=== PATIENT | female | born 1955 | race Hispanic/Latino ===

== ENCOUNTER → 2022-06-14 | Outpatient (CLI) | payer MEDICARE | LOC: MRI 08:56 | PROVIDERS: ATTEND Specialist | DX: M79.605 Pain in left leg (principal) ==

== ENCOUNTER 2022-07-10 15:34 | Outpatient (RCR) | payer MEDICARE | END 2022-07-16 | LOC: PT 15:34 | PROVIDERS: ATTEND Podiatrist Foot & Ankle Surgery | DX: R26.2 Difficulty in walking, not elsewhere classified (principal) ==

== ENCOUNTER 2022-07-24 13:51 | Outpatient (RCR) | payer MEDICARE | END 2022-08-16 | LOC: PT 13:51 | PROVIDERS: ATTEND Podiatrist Foot & Ankle Surgery | DX: R26.2 Difficulty in walking, not elsewhere classified (principal) ==

== ENCOUNTER → 2022-10-03 | Outpatient (CLI) | payer MEDICARE | LOC: MRI 09:43 | PROVIDERS: ATTEND Orthopaedic Surgery Adult Reconstructive Orthopaedic Surgery | DX: S83.232A Complex tear of medial meniscus, current injury, left knee, initial encounter (principal) ==